=== PATIENT | male | born 1970 | race African-American/Black ===

== ENCOUNTER → 2020-09-16 | Outpatient (CLI) | payer OTHER ==
--- NOTE | 2020-09-16 10:13 | RAD ---
EXAM: RENAL/RETROPERITONAL ULTRASOUND. HISTORY: Chronic renal disease. COMPARISON: None. FINDINGS: Ultrasound of the kidneys, bladder and retroperitoneum was performed. The right kidney measures 12.4 cm. Cortical thickness is preserved. Cortical echogenicity is mildly i ncreased. There is no hydronephrosis. A benign cyst at the upper pole measures 2.6 x 2.3 cm. The left kidney measures 12.3 cm. Cortical thickness is preserved. Cortical echogenicity is mildly in creased. There is no hydronephrosis. The bladder is decompressed but demonstrates some wall thickening. The abdominal aorta and inferior v larissa cava are grossly patent and normal in caliber. IMPRESSION: 1. Mild increased renal cortical echogenicity suggests intrinsic renal disease. 2. Bladder wall thickening suggests inflammation or chronic outlet obstruction. Correlate with urinal ysis. Electronically signed by: Darwin Pagan MD (09/16/2020 10:10 AM) [id number]
--- NOTE | 2020-09-16 10:22 | RAD ---
MR#: [id number] Date of Study: 09/16/2020 Ordering Physician: OSKAR BROWN, Referring Physician: OSKAR BROWN, Tech: Clarke Lee MBA, RDMS, RVT, RDCS, RTR APPROVED REPORT Patient Location: OUT-PATIENT Indications Uncontrolled HTN Renal Artery Doppler Right Renal Artery Left Renal Arter y Proximal 74.0/29.0 cm/secProximal 85.0/26.0 cm/sec Mid 84.0/30.0 cm/secMid 76.0/25.0 cm/sec Distal 71.0/30.0 cm/secDistal 110.0/39.0 cm/sec Renal/Aorta Ratio 0.97Renal/Aorta Ratio 1.30 Prox. Resistive Index 0.62Prox. Resistive Index 0.69 Mid Resistive Index 0.65Mid Resistive Index 0.68 Distal Resistive Index 0.57Distal Resistive Index 0.65 Rt. Segmental A. 27.0/9.0 cm/secLt. Segmental A. 30.0/12.0 cm/sec Renal Measurements RightLeft Kidney Kokxre48.4 cm cmKidney Gusyjz80.3 cm cm Right Additional FindingsLeft Additional Findings Aortic Duplex A/PTransverseLongitudinal Proximal Aorta 1.9cm Mid Aorta 1.9cm Distal Aorta 1.7cm Aortic Doppler VelocityWaveform Proximal Aorta 84.0 cm/sec Findings Technically difficult images. Aortic velocities and proximal, mid and distal renal artery velocities bilaterally are grossly within normal limits. Normal resistive indices and renal to aortic ratio is noted. Critical Notification Critical Value: No <Conclusion> 1. No significant renal artery stenosis bilaterally. 2. Technically difficult study. Signed by : Rolando Ayers, Electronically Approved : 09/16/2020 10:21:34
--- NOTE | 2020-09-16 15:07 | CARD ---
MR#: [id number] Date of Study: 09/16/2020 Ordering Physician: OSKAR BROWN, Referring Physician: OSKAR BROWN, Tech: Gamaliel Rosa [facility] APPROVED REPORT EXAM: Two-dimensional and M-mode echocardiogram with Doppler and color Doppler. Other Information Quality : AverageHR: 112bpm Rhythm : Tachycardia INDICATION Hypertension/HCVD Chronic renal disease RISK FACTORS Hypertension Family History 2D DIMENSIONS Left Atrium(2D)4.3 (1.6-4.0cm)IVSd1.2 (0.7-1.1cm) Aortic Root(2D)3.8 (2.0-3.7cm)LVDd6.3 (3.9-5.9cm) LVOT Diameter2.4 (1.8-2.4cm)PWd1.2 (0.7-1.1cm) LVDs5.4 (2.5-4.0cm)FS (%) 14.1 % SV59.7 mlLVEF(%)29.3 (>50%) Aortic Valve AoV Peak Silver.118.0cm/sAoV VTI20.5cm AO Peak GR.5.6mmHgLVOT Peak Silver.93.2cm/s AO Mean GR.4mmHgAVA (VMAX)3.57cm2 Mitral Valve MV E Jixrzzmo403.0cm/sMV E Peak Gr.6mmHg MV DECEL [id number] A Ctwumggk26.5cm/s MV E Mean Gr.2mmHgE/A Ratio4.3 Pulmonary Valve PV Peak Exenfxez24.5cm/s Tricuspid Valve TR P. Burtulls468nm/sTR Peak Gr.17mmHg Pulmonary Vein S1 Pqjiccjj35.4cm/sD2 Czpnsrfg61.9cm/s LEFT VENTRICLE The Left Ventricle is mildly dilated. There is mild concentric left ventricular hypertrophy. The left ventricular systolic function is severely impaired. The ejection fraction is 20-25%. There is global hypokinesis of the left ventricle. No left ventricle thrombus noted on this study. There is no ventr icular septal defect visualized. There is no left ventricular aneurysm. There is no mass noted in the left ventricle. RIGHT VENTRICLE The right ventricle is normal size. There is normal right ventricular wall thickness. The right ventr icular systolic function is normal. ATRIA The left atrium is mildly dilated. The right atrium size is normal. The interatrial septum is intact with no evidence for an atrial septal defect or patent foramen ovale as noted on 2-D or Doppler imagi ng. AORTIC VALVE The aortic valve is normal in structure and function. Doppler and Color Flow revealed no significant aortic regurgitation. There is no significant aortic valvular stenosis. There is no aortic valvular v egetation. MITRAL VALVE The mitral valve is normal in structure and function. There is no evidence of mitral valve prolapse. There is no mitral valve stenosis. Doppler and Color-flow revealed mild mitral regurgitation. TRICUSPID VALVE The tricuspid valve is normal in structure and function. Doppler and Color Flow revealed no tricuspid valve regurgitation noted. There is no tricuspid valve prolapse or vegetation. There is no tricuspid valve stenosis. PULMONIC VALVE The pulmonary valve is normal in structure and function. Doppler and Color Flow revealed no pulmonic valvular regurgitation. There is no pulmonic valvular stenosis. GREAT VESSELS Aortic root is borderline dilated. The ascending aorta is normal in size. The pulmonary artery is nor mal. The IVC is normal in size and collapses >50% with inspiration. PERICARDIAL EFFUSION There is no pleural effusion. There is no evidence of significant pericardial effusion. Critical Notification Physician Notified Date: 09/16/2020 Time: 11:04 Physician Name:Ann Critical Value: Yes <Conclusion> The left ventricular systolic function is severely impaired. The ejection fraction is 20-25%. Mild mitral regurgitation. There is no evidence of significant pericardial effusion. Signed by : Abraham Ayala, Electronically Approved : 09/16/2020 15:06:58
== END ==
LOC: US 08:41
PROVIDERS: ATTEND Internal Medicine Cardiovascular Disease
DX: I34.0 Nonrheumatic mitral (valve) insufficiency (principal); I51.7 Cardiomegaly; I12.9 Hypertensive chronic kidney disease with stage 1 through stage 4 chronic kidney disease, or unspecified chronic kidney disease; N18.9 Chronic kidney disease, unspecified
CPT/HCPCS: 76770; 93306; 93975

== ENCOUNTER → 2020-10-25 | Outpatient (CLI) | payer OTHER ==
[~2020-10-25] MED LIST: AMLO-186 PO; METO25TA2 PO; VALS320T2 PO
--- NOTE | 2020-10-25 16:54 | RAD ---
MR#: [id number] Date of Study: 10/25/2020 Ordering Physician: NNAMDI TEIXEIRA, Referring Physician: DENISHA CRISOSTOMO Tech: RT Dotty (R) (N) APPROVED REPORT Test Type: Exercise Stress Nurse/Tech: Denise Lemons R.N. Test Indications: cardiomyopathy, htn Cardiac History: htn Medications: See Electronic Medical Record Medical History: See Electronic Medical Record Resting ECG: sr Resting Heart Rate: 92 bpm Resting Blood Pressure: 184/92mmHg Pretest Chest Pain: No chest pain Nurse/Tech Notes lungs cta, heart tones regular Consent: The procedure was explained to the patient in lay terms. Informed consent was witnessed. Denis eout was entered into [employer]. History and Stress Test performed by BERKLEY Barrientos, JORDY (R) (N) Stress Symptoms No chest pain or symptoms.Dyspnea POST EXERCISE Reason for Termination: Reached target heart rate Target HR: Yes Max HR: 181 bpm 106% of Maximum Predicted HR: 170 bpm Exercise duration: 5:20 min:sec, 2 Stage Exercise capacity: 7.0METs Max Blood Pressure: 181/106mmHg Blood Pressure response to exercise: Normal blood pressure response during stress. Heart Rate response to exercise: normal Chest Pain: No. Arrhythmia: No. ST Change: No. INTERPRETATION Stress EKG Conclusion: Baseline EKG showed sinus rhythm. No ischemic changes at peak stress. No arr hythmias. Imaging Protocol IMAGE PROTOCOL: Rest Tc-99m/stress Tc-99m 1 day Rest: Stress: Viability: Radiopharm.Tc99m TsoazlnvaYl97j Sestamibi Dose10.5mCi 31mCi Duration 15min. 10min. Img Date 10/25/2020 10/25/2020 Inj-Img Srto00uqi. 60min. Rest Admin Site:IV - Right AntecubitalAdministrator:BERKLEY Barrientos, SOLIST (R)(N) Stress Admin Site: IV - Right AntecubitalAdministrator: BERKLEY Barrientos, JORDY (R)(N) STRESS DATA End Diast. Vol.229.0mlAv. Heart Wqzh183.0bpm End Syst. Vol.147.0mlCO Index BSA0.0L/min Myocardial Civl322.0gEject. Rgdzorht78.0% Stress Rates Pk. Fill Rate2.95EDV/secLVtime Pk. Fill 61.04msec Pk. Empty Rate3.93ESV/secLVtime Pk. Suqab000.79msec 1/3 Pk. Fill1.90EDV/sec Stress Scores Regional WT3.00Summed WT37.00 Regional WM1.00Summed WM17.00 LV Perfusion Scintigraphic images did not show any significant fixed or reversible defects. Wall Motion Mild left ventricular systolic dysfunction with ejection fraction calculated at 43%. LV Perf. Quant 17 Seg. SSS2.00 17 Seg. SRS0.00 17 Seg. SDS2.00 Stress Defect Extent (% LAD)0.00Rest Defect Extent (% LAD)0.00Rev. Defect Extent (% LAD)0.00 Stress Defect Extent (% LCX) 22.50Rest Defect Extent (% LCX)0.00Rev. Defect Extent (% LCX)2.50 Stress Defect Extent (% RCA)0.00Rest Defect Extent (% RCA)0.00Rev. Defect Extent (% RCA)0.00 Stress Defect Extent (% MARC)3.90Rest Defect Extent (% MARC)0.00Rev. Defect Extent (% MARC)0.40 Conclusion 1. Treadmill exercise cardioisotope stress test did not show any evidence of ischemia or infarct. 2. Mild left ventricular systolic dysfunction with ejection fraction calculated at 43%. 3. Low to intermediate risk for cardiac events. Signed by : Nnamdi Teixeira, Electronically Approved : 10/25/2020 16:53:41
== END ==
LOC: NM 08:25
PROVIDERS: ATTEND Internal Medicine Cardiovascular Disease
DX: I42.9 Cardiomyopathy, unspecified (principal)
CPT/HCPCS: 78452; 93017; A9500

== ENCOUNTER → 2020-12-24 | Outpatient (CLI) | payer OTHER ==
--- NOTE | 2020-12-24 18:50 | CARD ---
MR#: [id number] Date of Study: 12/24/2020 Ordering Physician: OSKAR BROWN, Referring Physician: OSKAR BROWN, Tech: Vivi Wells [facility] APPROVED REPORT EXAM: Two-dimensional and M-mode echocardiogram with Doppler and color Doppler. Other Information Quality : AverageHR: 111bpm Rhythm : NSR INDICATION Cardiomyopathy RISK FACTORS Hypertension 2D DIMENSIONS RVDd4.1 (2.9-3.5cm)Left Atrium(2D)4.3 (1.6-4.0cm) IVSd1.8 (0.7-1.1cm)Aortic Root(2D)4.0 (2.0-3.7cm) LVDd4.8 (3.9-5.9cm)LVOT Diameter2.6 (1.8-2.4cm) PWd1.6 (0.7-1.1cm)LVDs3.7 (2.5-4.0cm) FS (%) 22.2 %SV48.2 ml LVEF(%)44.7 (>50%) Aortic Valve AoV Peak Silver.142.5cm/sAoV VTI22.0cm AO Peak GR.8.1mmHgLVOT Peak Silver.81.8cm/s AO Mean GR.4mmHgAVA (VMAX)3.09cm2 Pulmonary Valve PV Peak Tllarjye359.1cm/s LEFT VENTRICLE The left ventricle is normal size. There is moderate concentric left ventricular hypertrophy. The eje ction fraction is mildly decreased. EF 40-45%. Tachycardia precludes accurate assessment. There is gl obal hypokinesis of the left ventricle. Tissue Doppler imaging reveals moderate left ventricular queen tolic dysfunction. RIGHT VENTRICLE The right ventricle is normal size. There is normal right ventricular wall thickness. The right ventr icular systolic function is normal. ATRIA The left atrium size is normal. The right atrium size is normal. The interatrial septum is intact wit h no evidence for an atrial septal defect or patent foramen ovale as noted on 2-D or Doppler imaging. AORTIC VALVE The aortic valve is normal in structure and function. Doppler and Color Flow revealed no significant aortic regurgitation. There is no significant aortic valvular stenosis. MITRAL VALVE The mitral valve is normal in structure and function. There is no evidence of mitral valve prolapse. There is no mitral valve stenosis. Doppler and Color Flow revealed no mitral valve regurgitation note d. TRICUSPID VALVE The tricuspid valve is normal in structure and function. Doppler and Color Flow revealed no tricuspid valve regurgitation noted. PULMONIC VALVE Doppler and Color Flow revealed no pulmonic valvular regurgitation. There is no pulmonic valvular maru nosis. GREAT VESSELS The aortic root is mildly enlarged. The ascending aorta is normal in size. The IVC is normal in size and collapses >50% with inspiration. PERICARDIAL EFFUSION There is no evidence of significant pericardial effusion. Critical Notification Critical Value: No <Conclusion> The ejection fraction is mildly decreased. EF 40-45%. Tachycardia precludes accurate assessment. Septal motion suggestive of conduction defect, there is global hypokinesis of the left ventricle. There is moderate concentric left ventricular hypertrophy. Signed by : Rolando Ayers, Electronically Approved : 12/24/2020 18:50:10
== END ==
LOC: ECHO 07:24
PROVIDERS: ATTEND Internal Medicine Cardiovascular Disease
DX: I51.7 Cardiomegaly (principal); I42.9 Cardiomyopathy, unspecified; R00.0 Tachycardia, unspecified
CPT/HCPCS: 93306